=== PATIENT | male | born 1990 | race Two or more races ===

== ENCOUNTER 2017-02-06 18:43 | Emergency (ER) | payer OTHER ==
[~2017-02-06 18:43] MED LIST: NO MEDICATIONS
== END 2017-02-06 19:20 | disposition home or self-care (01) ==
LOC: CED 18:43
DX: M54.6 Pain in thoracic spine (principal); J06.9 Acute upper respiratory infection, unspecified; F17.210 Nicotine dependence, cigarettes, uncomplicated
CPT/HCPCS: 96372; 99283; J1885

== ENCOUNTER 2017-03-08 10:39 | Emergency (ER) | payer OTHER | END 2017-03-08 13:11 | disposition home or self-care (01) | LOC: CED 10:39 | DX: K04.7 Periapical abscess without sinus (principal); K02.9 Dental caries, unspecified; R51 Headache; F17.210 Nicotine dependence, cigarettes, uncomplicated | CPT/HCPCS: 36415; 96361; 96374; 96375; 99284; J1200; J1885; J2765 ==

== ENCOUNTER 2017-06-02 14:33 | Emergency (ER) | payer OTHER ==
[~2017-06-02] VITALS: Ht 167.6 cm; Wt 63.5 kg
== END 2017-06-02 16:14 | disposition home or self-care (01) ==
LOC: CED 14:33 → CFTX 14:33
DX: H00.015 Hordeolum externum left lower eyelid (principal); F17.210 Nicotine dependence, cigarettes, uncomplicated
CPT/HCPCS: 99283